=== PATIENT | female | born 1975 | race Caucasian/White ===

== ENCOUNTER 2025-02-05 06:32 | Day surgery (SDC) | payer OTHER ==
[2025-02-05 06:50] VITALS: RESP 16
[2025-02-05] MEDS: Lactated Ringers 1,000 ML IV SCH (06:53)
[2025-02-05] MEDS ORDERED: Versed 2 MG/2 ML Injection ONE (07:54)
[2025-02-05] MEDS ORDERED: propofoL IV ONE (07:54)
[2025-02-05 09:03] VITALS: BP 132/82; PULSE 57; TEMP 97.9; O2SAT 96
--- NOTE | 2025-02-06 10:59 | OP ---
SURGERY DATE/TIME: 02/05/2025 [id number] PREOPERATIVE DIAGNOSIS: Screening exam. POSTOPERATIVE DIAGNOSIS: Normal colon. PROCEDURE: Colonoscopy. SURGEON: Wayne Nevarez MD ANESTHESIA: Medications were given by the anesthesia department. INDICATIONS: The patient is a 49-year-old white female presenting now for her first screening colonoscopy. The patient was apprised of the risks of the procedure including risk of perforation, phlebitis, untoward reaction to medication, bleeding, and missed lesions. The patient verbalized her understanding and desired to have procedure performed. DESCRIPTION OF PROCEDURE AND FINDINGS: The patient was given medication by the anesthesia department. She had continuous pulse oximetry, ECG monitoring, and intermittent blood pressure monitoring during the examination. She was placed in the left lateral decubitus position. Digital rectal examination was performed and revealed a normal anal sphincter tone and no masses. The flexible Olympus videocolonoscope was used to intubate the rectum. A view of the colon was developed sequentially to the cecum. Upon insertion and withdrawal, including retroflexed view in the rectum, no mucosal lesions were encountered. The scope was removed from the patient, who tolerated the procedure well, and was sent back to outpatient recovery in good condition. The prep was noted to be fair to good.
== END 2025-02-05 09:17 | disposition home or self-care (01) ==
LOC: SDC 06:32
PROVIDERS: ATTEND Family Medicine
DX: Z12.11 Encounter for screening for malignant neoplasm of colon (principal)
CPT/HCPCS: J2250; J2704